=== PATIENT | male | born 2000 | race Caucasian/White ===

== ENCOUNTER 2018-05-24 05:05 | Emergency (ER) | payer MEDICAID ==
[2018-05-24] MEDS ORDERED: 0.9 % SODIUM CHLORIDE 1000ML 1,000 ML IV SCH ×2 (05:15→06:00)
--- NOTE | 2018-05-24 05:17 | Emergency Department Record ---
History of Present Illness - General Chief complaint: Nausea, Vomiting, Diarrhea Stated complaint: NAUSEA/VOMITING Time Seen by Provider: 05/24/18 05:10 Source: Patient Mode of Arrival: Ambulatory Limitations: No limitations - History of Present Illness Initial comments: 18 yo male presents to ED for evaluation of nausea and vomiting symptoms that began 3-4 hours ago. Patient reports that he has not had his insulin since last evening, believes that he may be going into DKA as a result. Patient reports history of DKA resulting from the absence of insulin previously. Patient denies fevers, chills, or recent illness. MD complaint: Nausea, Vomiting Onset/Timin -: Hour(s) Associated Abdominal Pain: No Severity: Moderate Consistency: Constant Improves with: None Worsens with: None Associated Symptoms: Denies other symptoms - Related Data Home Medications Medication Instructions Recorded Confirmed Last Taken Insulin Glargine,Hum.rec.anlog 56 units SQ DAILY 05/24/18 05/24/18 05/22/18 [Basaglar Kwikpen U-100] Allergies Allergy/AdvReac Type Severity Reaction Status Date / Time Penicillins Allergy Severe ANAPHYLAXIS Verified 05/24/18 05:15 codeine Allergy RASH Verified 05/24/18 05:15 Review of Systems Constitutional: Denies: Chills, Fever, Malaise, Night sweats Eyes: Denies: Eye discharge, Eye pain ENT: Denies: Congestion, Ear pain, Epistaxis Respiratory: Denies: Cough, Dyspnea Cardiovascular: Denies: Chest pain, Dyspnea on exertion Endocrine: Denies: Fatigue, Heat or cold intolerance Gastrointestinal: Reports: Nausea, Vomiting. Denies: Abdominal pain, Constipation Genitourinary: Denies: Incontinence, Retention Musculoskeletal: Denies: Arthralgia, Back pain, Gout, Joint swelling Skin: Denies: Bruising, Change in color Neurological: Denies: Abnormal gait, Confusion, Headache, Seizure Psychiatric: Denies: Anxiety Hematological/Lymphatic: Denies: Anemia, Blood Clots Past Medical History - SOCIAL HISTORY Smoking Status: Never smoker - RESPIRATORY Hx Respiratory Disorders: No - CARDIOVASCULAR Hx Cardio Disorders: No - NEURO Hx Neuro Disorders: No - GI Hx GI Disorders: No - Hx Genitourinary Disorders: No - ENDOCRINE Hx Diabetes: Yes (type I) - MUSCULOSKELETAL Hx Musculoskeletal Disorders: No - PSYCH Hx Psych Problems: No - HEMATOLOGY/ONCOLOGY Hx Hematology/Oncology Disorders: No Physical Exam - General General Appearance: Alert, Oriented x3, Cooperative, Moderate distress Limitations: No limitations - Head Head exam: Atraumatic, Normocephalic, Normal inspection Head exam detail: negative: Abrasion, Contusion, Toney's sign, General tenderness, Hematoma - Eye Eye exam: Normal appearance. negative: Conjunctival injection, Periorbital swelling, Periorbital tenderness, Scleral icterus - ENT Ear exam: negative: Auricular hematoma, Auricular trauma Nasal Exam: negative: Active bleeding, Discharge, Dried blood, Foreign body Mouth exam: negative: Drooling, Laceration, Muffled voice, Tongue elevation - Neck Neck exam: Normal inspection. negative: Meningismus, Tenderness - Respiratory Respiratory exam: Normal lung sounds bilaterally. negative: Rales, Respiratory distress, Rhonchi, Stridor - Cardiovascular Cardiovascular Exam: Regular rate, Normal rhythm, Normal heart sounds - GI/Abdominal GI/Abdominal exam: Soft. negative: Rebound, Rigid, Tenderness - Rectal Rectal exam: Deferred - exam: Deferred - Extremities Extremities exam: Normal inspection. negative: Pedal edema, Tenderness - Back Back exam: Denies: CVA tenderness (R), CVA tenderness (L) - Neurological Neurological exam: Alert, Normal gait, Oriented X3 - Psychiatric Psychiatric exam: Normal affect, Normal mood - Skin Skin exam: Normal color. negative: Abrasion Type of lesion: negative: abrasion Course - Reevaluation(s) Reevaluation #1: 05/24/18 05:48 Laboratory studies were reviewed: Glucose 785 CO2 17 AG 31 pH 7.28 Acetone: Small 1st liter NS almost completed, 2nd ordered to infuse. Will initiate transfer for admission. Reevaluation #2: 05/24/18 05:59 Case was discussed with Dr. Jang, will accept patient at this time. Medical Decision Making - Lab Data Result diagrams: 05/24/18 05:10 05/24/18 05:10 Disposition Disposition: Transfer Clinical Impression: DKA (diabetic ketoacidoses) Qualifiers: Diabetes mellitus type: type 1 Diabetes mellitus complication detail: without coma Qualified Code(s): E10.10 - Type 1 diabetes mellitus with ketoacidosis without coma Nausea & vomiting Qualifiers: Vomiting type: unspecified Vomiting Intractability: non-intractable Qualified Code(s): R11.2 - Nausea with vomiting, unspecified Disposition: Acute Care Hospital Transfer Transfer To: [facility] Reason For Transfer: DKA Accepting Physician: Suhail Time Discussed w/Accepting Physician: 05:51 Condition: (2) Stable Forms: Patient Portal Access Time of Disposition: 05:51 Quality - Quality Measures Quality Measures: N/A - Blood Pressure Screening Does Patient Have Any of the Following: No Blood Pressure Classification: Pre-Hypertensive BP Reading Systolic Measurement: 123 Diastolic Measurement: 79 Screening for High Blood Pressure: < Pre-Hypertensive BP, F/U Documented > [ G8950] Pre-Hypertensive Follow-up Interventions: Referral to alternative/primary care provider.
[2018-05-24] MEDS: ONDANSETRON HCL IV 4 MG/2 ML VIAL IVP ONE ×2 (05:20→06:19)
[2018-05-24 05:24] LABS: BASO % 0.2 % (0-6); EOS % 0.1 % (0-6); GRAN % 75.3 % (47-80); HEMATOCRIT 46.4 % (42.0-52.0); HEMOGLOBIN 16.6 gm/dl (14.0-18.0); LYMPH % 18.6 % (16-45); MEAN CELL VOLUME 87.4 fl (81-97); MEAN CORPUSCULAR HEMOGLOBIN 31.3 pg (27-33); MEAN CORPUSCULAR HGB CONC 35.8 g/dl (32-36); MEAN PLATELET VOLUME 9.3 fl (7.4-10.4); MONO % 5.8 % (0-9); PLATELET COUNT 329 K/uL (130-400); RED BLOOD COUNT 5.31 M/uL (4.40-5.70); RED CELL DISTRIBUTION WIDTH 12.2 % (11.5-14.5); WHITE BLOOD COUNT W/O DIFF 9.9 K/uL (4.2-12.2)
[2018-05-24 05:31] LABS: BLOOD UREA NITROGEN 17 mg/dL (6-20); CREATININE 0.9 mg/dL (0.7-1.2); EST GLOMERULAR FILTRATION RATE > 60 mL/min; TOTAL PROTEIN 7.8 g/dL (6.6-8.7)
[2018-05-24 05:32] LABS: ACETONE,SERUM SMALL (NEGATIVE)
[2018-05-24 05:36] LABS: ALB/GLOB RATIO 1.5 (1.1-1.8); ALBUMIN 4.7 g/dL (4.0-5.0); ALKALINE PHOSPHATASE 104 U/L (55-149); ALT/SGPT 29 U/L (<41); AST/SGOT 16 U/L (10.0-50.0)
[2018-05-24 05:46] LABS: GLUCOSE,RANDOM 785 mg/dL (74-109)
[2018-05-24 05:51] LABS: URINE APPEARANCE CLEAR; URINE BILIRUBIN NEGATIVE (NEGATIVE); URINE BLOOD NEGATIVE (NEGATIVE); URINE COLOR YELLOW; URINE LEUKOCYTE ESTERASE NEGATIVE (NEGATIVE); URINE NITRITE NEGATIVE (NEGATIVE); URINE PROTEIN NEGATIVE (NEGATIVE); URINE UROBILINOGEN 0.2 E.U./dL (0.20 - 1.00)
[2018-05-24 05:52] LABS: URINE GLUCOSE (UA) >=1000 mg/dL (NEGATIVE)
[2018-05-24 05:53] LABS: URINE KETONE 80 mg/dL (NEGATIVE)
[2018-05-24] MEDS ORDERED: INSULIN REGULAR, HUMAN 100 UNIT in 0.9 % SODIUM CHLORIDE 100ML 100 ML IV SCH ×2 (06:00)
[2018-05-24] MEDS ORDERED: ONDANSETRON HCL IV 4 MG/2 ML VIAL IVP ONE (06:14)
== END 2018-05-24 06:21 | disposition short-term general hospital (02) ==
LOC: ER 05:05
DX: E10.10 Type 1 diabetes mellitus with ketoacidosis without coma (principal); R11.2 Nausea with vomiting, unspecified; R19.7 Diarrhea, unspecified; Z79.4 Long term (current) use of insulin
CPT/HCPCS: 80053; 81003; 82009; 82800; 85025; 96374; 96375; 99285; J2405; J7030

== ENCOUNTER 2018-09-21 02:31 | Emergency (ER) | payer MEDICAID ==
[2018-09-21] MEDS ORDERED: ONDANSETRON HCL IV 4 MG/2 ML VIAL IVP ONE (02:53)
--- NOTE | 2018-09-21 02:56 | Emergency Department Record ---
History of Present Illness - General Chief complaint: Hypergylcemia Stated complaint: HIGH SUGAR Time Seen by Provider: 09/21/18 02:52 Source: Patient Mode of Arrival: Ambulatory Limitations: No limitations - History of Present Illness Initial comments: 18 yo male presents to ED for evaluation of elevated blood sugar, reports that he took his last does of Insulin last evening. Patient reports that he recently left rehab for methamphetamine, started using for the past several days. Patient reports nausea and vomiting, denies fevers, chills, or recent illness. MD Complaint: Generalized weakness Onset/Timin -: Minutes(s) Location: Generalized Severity: Moderate Improves with: Other Worsens with: Movement Context: Other Associated Symptoms: Headaches, Nausea/vomiting - [place] Coma Scale Eye Response: (4) Open spontaneously Motor Response: (6) Obeys commands Verbal Response: (5) Oriented Og Total: 15 - Related Data Previous Rx's Medication Instructions Recorded Ondansetron [Zofran Odt] 4 mg PO Q6H PRN #15 tab.rapdis 09/21/18 Allergies Allergy/AdvReac Type Severity Reaction Status Date / Time Penicillins Allergy Severe ANAPHYLAXIS Verified 05/24/18 05:15 codeine Allergy RASH Verified 05/24/18 05:15 Travel Screening - Travel/Exposure Within Last 30 Days Have you traveled within the last 30 days?: No - Travel Symptoms Symptom Screening: Headache, Vomiting Review of Systems Constitutional: Denies: Chills, Fever, Malaise, Night sweats Eyes: Denies: Eye discharge, Eye pain ENT: Denies: Congestion, Ear pain, Epistaxis Respiratory: Denies: Cough, Dyspnea Cardiovascular: Denies: Chest pain, Dyspnea on exertion Endocrine: Denies: Fatigue, Heat or cold intolerance Gastrointestinal: Reports: Nausea, Vomiting. Denies: Abdominal pain Genitourinary: Denies: Incontinence, Retention Musculoskeletal: Denies: Arthralgia, Back pain Skin: Denies: Bruising, Change in color Neurological: Denies: Abnormal gait, Confusion, Headache, Seizure Psychiatric: Reports: Anxiety Hematological/Lymphatic: Denies: Anemia, Blood Clots Past Medical History - SOCIAL HISTORY Smoking Status: Never smoker Alcohol Use: Occasional Drug Use: Occasional Drug Use Detail:: Marijuana, Methamphetamine - RESPIRATORY Hx Respiratory Disorders: No - CARDIOVASCULAR Hx Cardio Disorders: No - NEURO Hx Neuro Disorders: No - GI Hx GI Disorders: Yes Hx Nausea/Vomiting: Yes (DKA) - Hx Genitourinary Disorders: No - ENDOCRINE Hx Endocrine Disorders: Yes Hx Diabetes: Yes (type I) - MUSCULOSKELETAL Hx Musculoskeletal Disorders: No - PSYCH Hx Psych Problems: No - HEMATOLOGY/ONCOLOGY Hx Hematology/Oncology Disorders: No Family Medical History Any Significant Family History?: No Family Hx Comment (NOT TO BE USED IN PLACE OF ITEMS BELOW): denies Physical Exam - General General Appearance: Alert, Oriented x3, Cooperative, Moderate distress Limitations: No limitations - Head Head exam: Atraumatic, Normocephalic, Normal inspection Head exam detail: negative: Abrasion, Contusion, Toney's sign, General tenderness, Hematoma, Laceration - Eye Eye exam: Normal appearance. negative: Conjunctival injection, Periorbital swelling, Periorbital tenderness, Scleral icterus - ENT Ear exam: negative: Auricular hematoma, Auricular trauma Nasal Exam: negative: Active bleeding, Discharge, Dried blood, Foreign body Mouth exam: negative: Drooling, Laceration, Muffled voice, Tongue elevation - Neck Neck exam: Normal inspection. negative: Meningismus, Tenderness - Respiratory Respiratory exam: Normal lung sounds bilaterally. negative: Rales, Respiratory distress, Rhonchi, Stridor - Cardiovascular Cardiovascular Exam: Regular rate, Normal rhythm, Normal heart sounds - GI/Abdominal GI/Abdominal exam: Soft. negative: Rebound, Rigid, Tenderness - Rectal Rectal exam: Deferred - exam: Deferred - Extremities Extremities exam: Normal inspection. negative: Pedal edema, Tenderness - Back Back exam: Denies: CVA tenderness (R), CVA tenderness (L) - Neurological Neurological exam: Alert, Normal gait, Oriented X3 - Psychiatric Psychiatric exam: Normal affect, Normal mood - Skin Skin exam: Normal color. negative: Abrasion Type of lesion: negative: abrasion Course Vital Signs 09/21/18 02:45 Temperature 98 F Pulse Rate [ 95 H Pulse Ox Probe] Respiratory 20 Rate Blood Pressure 145/88 [Left Arm] Pulse Ox 100 - Reevaluation(s) Reevaluation #1: 09/21/18 03:19 Laboratory studies were reviewed: AG 24 CO 22 Venous pH 7.34 Acetone: Moderate Findings are c/w Hyperglycemia, early DKA if untreated. Will administer 2000 mL NS, Insulin 15 units, and recheck laboratory studies to confirm improvement. Reevaluation #2: 09/21/18 04:36 Repeat BMP was reassessed: AG 19 (improved) CO2 19 Glucose improved to 316. Patient reports improvement in his symptoms, appears stable for discharge with instructions to resume his Insulin later this morning. Zofran as needed. Medical Decision Making - Lab Data Result diagrams: 09/21/18 02:57 09/21/18 04:20 Disposition Disposition: Discharge Clinical Impression: Acute hyperglycemia Disposition: Home, Self-Care Condition: (2) Stable Instructions: Diabetic Hyperglycemia (ED) Additional Instructions: Return to ED if your symptoms worsen or if you have any concerns. Insulin as directed. Zofran as directed. Follow-up with your family doctor in 1-3 days as directed. Prescriptions: Ondansetron [Zofran Odt] 4 mg PO Q6H PRN #15 tab.rapdis PRN Reason: Nausea/Vomiting Forms: Patient Portal Access Time of Disposition: 04:39 Quality - Quality Measures Quality Measures: N/A - Blood Pressure Screening Does Patient Have Any of the Following: No Blood Pressure Classification: Pre-Hypertensive BP Reading Systolic Measurement: 145 Diastolic Measurement: 88 Screening for High Blood Pressure: < Pre-Hypertensive BP, F/U Documented > [G8950] Pre-Hypertensive Follow-up Interventions: Referral to alternative/primary care provider.
[2018-09-21 02:57] LABS: ABSOLUTE NEUTROPHIL COUNT 2.49; BASO % 0.2 % (0-6); EOS % 1.5 % (0-6); GRAN % 48.1 % (47-80); HEMATOCRIT 46.7 % (42.0-52.0); HEMOGLOBIN 16.5 gm/dl (14.0-18.0); LYMPH % 41.3 % (16-45); MEAN CELL VOLUME 87.5 fl (81-97); MEAN CORPUSCULAR HEMOGLOBIN 30.9 pg (27-33); MEAN CORPUSCULAR HGB CONC 35.3 g/dl (32-36); MEAN PLATELET VOLUME 9.4 fl (7.4-10.4); MONO % 8.9 % (0-9); PLATELET COUNT 344 K/uL (130-400); RED BLOOD COUNT 5.34 M/uL (4.40-5.70); WHITE BLOOD COUNT W/O DIFF 5.2 K/uL (4.2-12.2)
[2018-09-21] MEDS: 0.9 % SODIUM CHLORIDE 1000ML 1,000 ML IV SCH ×2 (03:00→03:29)
[2018-09-21 03:04] LABS: BLOOD UREA NITROGEN 17 mg/dL (6-20)
[2018-09-21 03:05] LABS: EST GLOMERULAR FILTRATION RATE > 60 mL/min; TOTAL PROTEIN 7.6 g/dL (6.6-8.7)
[2018-09-21 03:06] LABS: ACETONE,SERUM MODERATE (NEGATIVE)
[2018-09-21 03:10] LABS: ALB/GLOB RATIO 1.8 (1.1-1.8); ALBUMIN 4.9 g/dL (4.0-5.0); ALKALINE PHOSPHATASE 108 U/L (40-129); ALT/SGPT 20 U/L (<41); AST/SGOT 21 U/L (10.0-50.0)
[2018-09-21] MEDS ORDERED: HUMULIN R 100 UNIT/ML VIAL IV ONE (03:19)
[2018-09-21] MEDS ORDERED: 0.9 % SODIUM CHLORIDE 1000ML 1,000 ML IV SCH (03:30)
[2018-09-21 04:29] LABS: BLOOD UREA NITROGEN 15 mg/dL (6-20); CREATININE 0.8 mg/dL (0.7-1.2); EST GLOMERULAR FILTRATION RATE > 60 mL/min
[2018-09-21 04:32] LABS: GLUCOSE,RANDOM 316 mg/dL (74-109)
[2018-09-21] MEDS ORDERED: ONDANSETRON 4 MG ODT TABLET SL ONE (04:39)
== END 2018-09-21 04:57 | disposition home or self-care (01) ==
LOC: ER 02:31
DX: E10.65 Type 1 diabetes mellitus with hyperglycemia (principal); R11.2 Nausea with vomiting, unspecified; R51 Headache; Z79.4 Long term (current) use of insulin
CPT/HCPCS: 99284 ×2; 96374; 96375; 96361; 82800; 85025; 80048; 80053; 82009; J2405; J7030